=== PATIENT | female | born 1980 | race Caucasian/White ===

== ENCOUNTER 2017-01-24 11:54 | Emergency (ER) | payer MEDICAID ==
[~2017-01-24] VITALS: Ht 157.5 cm; Wt 60.0 kg
[2017-01-24] MEDS ORDERED: IBUPROFEN 800 MG TABLET PO ONE (14:00)
[2017-01-24 15:30] VITALS: BP 121/70
== END 2017-01-24 15:30 | disposition home or self-care (01) ==
LOC: EMS 11:55
DX: S50.01XA Contusion of right elbow, initial encounter (principal); S80.11XA Contusion of right lower leg, initial encounter; S00.81XA Abrasion of other part of head, initial encounter; S40.812A Abrasion of left upper arm, initial encounter; Y04.2XXA Assault by strike against or bumped into by another person, initial encounter; Y93.89 Activity, other specified; Y92.89 Other specified places as the place of occurrence of the external cause; Y99.8 Other external cause status
CPT/HCPCS: 70450; 99284